=== PATIENT | female | born 1980 | race Native Hawaiian/Other Pacific Islander ===

== ENCOUNTER → 2022-07-01 | Outpatient (CLI) | payer MEDICAID ==
[2022-07-01 12:02] LABS: URINE CREATININE FOR RATIO 55 MG/DL (30-125); URINE PROTEIN FOR RATIO ONLY < 6 MG/DL (6-12)
== END ==
LOC: LABNPT 11:32
PROVIDERS: ATTEND Obstetrics & Gynecology
DX: O13.9 Gestational [pregnancy-induced] hypertension without significant proteinuria, unspecified trimester (principal); Z3A.00 Weeks of gestation of pregnancy not specified
CPT/HCPCS: 82570; 84156

== ENCOUNTER 2022-07-14 05:29 | Outpatient (CLI) | payer MEDICAID ==
[~2022-07-14] VITALS: Ht 162.6 cm; Wt 180.5 kg
== END 2022-07-14 10:19 | disposition home or self-care (01) ==
LOC: PREOP 05:29
PROVIDERS: ATTEND Obstetrics & Gynecology
DX: Z01.818 Encounter for other preprocedural examination (principal)

== ENCOUNTER 2022-07-21 06:03 | Inpatient (IN) | payer MEDICAID ==
[2022-07-21] VITALS (8 sets, daily range): BP systolic 111–150; BP diastolic 8–96
[~2022-07-21] VITALS: Ht 165.1 cm; Wt 186.8 kg
[2022-07-21] MEDS ORDERED: metroNIDAZOLE 500MG/100ML IVPB 100 ML IV ONE (06:15)
[2022-07-21] MEDS ORDERED: ceFAZolin INJECTION 2,000 MG in NS (IVPB) 50 ML IV ONE (06:15)
[2022-07-21] MEDS ORDERED: FAMOTIDINE 20MG/2ML IV (PEPCID) IV ONE (06:30)
[2022-07-21] MEDS ORDERED: METOCLOPRAMIDE INJ 10 MG/2 ML (REGLAN) IV ONE (06:30)
[2022-07-21] MEDS ORDERED: LACTATED RINGERS 1,000 ML IV PRN ×2 (06:30)
[2022-07-21] MEDS ORDERED: CITRIC ACID/SOB CIT (BICITRA) 30 ML UDC PO ONE (06:30)
[2022-07-21] MEDS ORDERED: OXYTOCIN PRE-MIX DRIP 1,000 ML IV ONE (06:56)
[2022-07-21] MEDS ORDERED: fentaNYL INJ 100 MCG/2 ML AMP ONE (06:56)
[2022-07-21] MEDS ORDERED: KETOROLAC 30 MG/ML VIAL ONE (08:20)
[2022-07-21] MEDS ORDERED: OXYTOCIN PRE-MIX DRIP 500 ML IV ONE (10:13)
[2022-07-21 15:33] LABS: BASOPHILS % (AUTO) 0 % (0-10); EOSINOPHILS % (AUTO) 0 % (0-10); HEMATOCRIT 35 % (35-52); HEMOGLOBIN 11.4 g/dL (11.5-16.0); LYMPHOCYTES # (AUTO) 1.4 10^3/uL (1.0-4.0); LYMPHOCYTES % (AUTO) 17 % (12-44); MEAN CORPUSCULAR HEMOGLOBIN 26 pg (25-34); MEAN CORPUSCULAR HGB CONC 33 g/dL (32-36); MEAN CORPUSCULAR VOLUME 80 fL (80-99); MEAN PLATELET VOLUME 10.5 fL (9.0-12.2); MONOCYTES # (AUTO) 0.4 10^3/uL (0.0-1.0); MONOCYTES % (AUTO) 5 % (0-12); NEUTROPHILS # (AUTO) 6.3 10^3/uL (1.8-7.8); NEUTROPHILS % (AUTO) 77 % (42-75); PLATELET COUNT 270 10^3/uL (130-400); WHITE BLOOD COUNT 8.3 10^3/uL (4.3-11.0)
[2022-07-21] MEDS ORDERED: ONDANSETRON 4 MG/2 ML (SDV) Z0FRAN IVP PRN (19:15)
[2022-07-21] MEDS ORDERED: TETANUS,DIPTH,PERTUSS P/F (BOOSTRIX) 0.5 ML VIAL IM SCH (19:15)
[2022-07-21] MEDS ORDERED: MEASLES,MUMPS,RUBELLA 1 EA INJ SC SCH (19:15)
[2022-07-21] MEDS ORDERED: OXYTOCIN PRE-MIX DRIP 500 ML IV SCH (19:15)
[2022-07-21] MEDS ORDERED: HYDROcodone/APAP 5 MG/325 MG (LORTAB) TAB PO PRN (19:30)
[2022-07-21] MEDS: CATHETER FLUSH 10 ML SYR IV SCH (20:40)
[2022-07-21] MEDS: DOCUSATE SODIUM 100 MG (COLACE) CAP PO SCH (20:40)
[2022-07-21] MEDS: KETOROLAC 30 MG/ML VIAL IV SCH (20:40)
[2022-07-21] MEDS: ENOXAPARIN 60 MG/0.6 ML (LOVENOX) SYR SC SCH (20:44)
--- NOTE | 2022-07-21 21:25 | OPERATIVE REPORT ---
PREOPERATIVE DIAGNOSES:. 1. A 41-year-old female with previous section. 2. 39 weeks' gestation. 3. Morbid obesity. POSTOPERATIVE DIAGNOSES: 1. A 41-year-old female with previous section. 2. 39 weeks' gestation. 3. Morbid obesity. PROCEDURE: Repeat low transverse section. SURGEON: Reynaldo Fernandes DO. SIGN CARPENTER: Dr. Dino Liao, who was necessary for manipulation and retraction throughout the procedure. ANESTHESIA: Spinal. ESTIMATED BLOOD LOSS: 700 mL. URINE OUTPUT: 75 mL clear at the end of the procedure. FLUIDS: 1000 mL lactated Ringer's solution. FINDINGS: A live male infant weighing 7 pounds 4 ounces, Apgars of 8 and 8. Grossly normal appearing uterus, bilateral fallopian tubes and ovaries. SPECIMEN SENT: Placenta. INDICATIONS FOR PROCEDURE: The patient is a 41-year-old female patient who had sought care with Dr Liao at the [facility]. Her was complicated by advanced maternal age and morbid obesity as well as previous section. I discussed with the patient her preoperative visit the risk of surgery including risk of bleeding, infection, damage to surrounding structures including but not limited to bowel, bladder, ureter, kidneys, possible need for reoperation, postoperative complications that may occur, recovery timeframe, risk from anesthesia and even . After everything was discussed with the patient in detail, she was agreeable to proceed. Consent was obtained. The patient was taken to the operating room. OPERATIVE REPORT IN DETAIL: Once in the operating room, spinal analgesia was administered and found to be adequate, was placed in supine position with leftward tilt, prepped and draped in normal sterile fashion. Her pannus was suspended using a towel clamp, applied Kerlix over her shoulders bilaterally. I then identified the previous Pfannenstiel skin incision. After anesthesia was tested and the patient was draped, I then proceeded to make an incision through the previously existing scar using knife and carried down underlying fascia using Bovie cautery. The fascial incision extended laterally using Bovie cautery. The superior aspect of fascial incision was then grasped with Salvador clamps, tented upward, and dissected off the underlying rectus muscles. The inferior aspect of the fascial incision was then grasped with Salvador clamps, tented up, and dissected off the underlying rectus muscles. The rectus muscles were dissected down the midline sharply, which exposed the peritoneum, which I entered bluntly and extended using blunt traction. Jose De Jesus ring retractor was placed in the peritoneal incision, which offers excellent lateral sidewall retraction. I identified the lower uterine segment, found to be thinned out. I make a low transverse incision to the vesicouterine peritoneum and bluntly dissected this off the lower uterine segment, creating a bladder flap. I then proceeded my myotomy until membranes were visualized, at which point I extended the uterine incision laterally and superiorly using bandage scissors. Amniotomy was then performed using an Allis clamp. Clear fluid was noted. The was found in the vertex presentation. The head was elevated up the incision where delivered through the incision, the nares and oropharynx were bulb suctioned. Anterior and posterior shoulders were delivered. The was brought to the operative field where cords were doubly clamped and cut and infant was handed off to waiting nurses in attendance and Dr. Liao who further attend to the infant. Cord blood was collected. Three-vessel cord with intact placenta was delivered spontaneously thereafter. IV Pitocin was initiated to facilitate uterine contraction. Uterine fundus confirmed by manual massage. The uterus was then exteriorized and cleared of all endometrial clots and debris. I then proceeded with closing the uterine incision using 0 Vicryl suture in a running locked fashion. Second layer of imbricating 0 Monocryl was placed. Excellent hemostasis was noted after doing this, I then placed the uterus back in the pelvis and copiously irrigated the pelvis using normal saline. Once again, there was no active bleeding noted from any of my dissection planes. I placed Interceed antiadhesive over my low transverse incision. I removed the Jose De Jesus ring retractor and then proceeded with closing the peritoneum and rectus muscles in one layer using 3-0 Vicryl suture in a running fashion. The fascia was reapproximated using 0 Vicryl suture in a running fashion. The subcutaneous tissues were reapproximated using 3-0 plain interrupted subcutaneous stitch and skin reapproximated using veena. Lap and sponge counts were correct at the end of the procedure, the counts correct as well. A sterile dressing with adhesive white tape. The patient tolerated the procedure well and sent to recovery area in stable condition. A 2 grams Ancef and 500 mg of Flagyl were given preoperatively for infection prophylaxis. Job ID: [id number] DocumentID: [id number] Dictated Date: 07/21/2022 14:07:07 Business Office Specialist Date: 07/21/2022 21:23:00 Dictated By: REYNALDO FERNANDES DO
[2022-07-22 00:18] VITALS: BP 128/74
[2022-07-22] MEDS: KETOROLAC 30 MG/ML VIAL IV SCH ×2 (02:25→08:00)
[2022-07-22 04:41] VITALS: BP 126/76
--- NOTE | 2022-07-22 05:54 | History & Physical-OB ---
YARI ZAPATA 07/22/22 0554: OB - Chief Complaint & HPI Date/Time Date of Admission: Date of Admission: July 21, 2022 at 06:03 Date seen by a Provider: July 21, 2022 Time Seen by a Provider: 07:00 Chief Complaint/History OB-Reason for Admission/Chief: Section Hx : 3 Hx Para: 2 Hx Last Menstrual Period: 10/22/2021 Expected Date of Delivery: July 28, 2022 Gestational Age in Weeks: 39 Gestational Age in Days: 0 Indication for : desires repeat Admission Nurse Assessment Rev: Yes Allergies and Home Medications Allergies Coded Allergies: No Known Drug Allergies (Unverified , 07/14/22) Patient Home Medication List Home Medication List Reviewed: Yes No Active Prescriptions or Reported Meds OB - History Hx of Present Care: Yes Ultrasounds: Normal mid trimester US Obstetrical Complications: None Medical Complications: None Information Induced Hypertension: No Maternal Gestational Diabetes: No Hemorrhage: No Obstetrical History Hx : 3 Hx Para: 2 Hx # Term Pregnancies: 2 Number of Living Children: 2 Hx Termination: No Hx Multiple Gestation: No Hx Ectopic : No Hx Stillbirth: No Hx Complication: No Hx Induced Hypertens: No Hx Maternal Gestational Diabet: No Hx Hemorrhage: No Delivery History Hx Dystocia: No Hx Forceps Assisted Delivery: No Hx Vacuum Extraction Assisted: No Hx Placenta Abnormality: No Hx Distress: No Hx Large For Gestational Age I: No Hx Small for Gestational Age I: No Hx Section: Yes Hx Vaginal Delivery Post C-Sec: No Hx Blood Disorders: No Adverse Rxn to Tranfusion: No Patient Past Medical History Nothing Social History/Family History Alcohol Use: Denies Use Recreational Drug Use: Yes (History of positive amphetamine and methamphetamine test) Smoking Cessation: Never smoker 2nd Hand Smoke Exposure: No Immunizations Tetanus Booster (TDap): Less than 5yrs Rubella: immune RPR/VDRL: Negative GBS Status: Positive HBsAG: Negative OB - Admission Exam Physical Exam Vitals: Vital Signs 07/22/22 04:41 Temp 36.4 Pulse 95 Resp 20 B/P (MAP) 126/76 (93) Pulse Ox 98 O2 Delivery Room Air Heart: Rhythm Normal Lungs: Clear Abdomen: Soft Reflexes: Normal Membranes: Intact Contractions on Admission: None Labs Laboratory Tests Test 07/21/22 06:15 07/22/22 05:04 Range/Units White Blood Count 8.3 4.3-11.0 10^3/uL Red Blood Count 4.34 3.80-5.11 10^6/uL Hemoglobin 11.4 L 11.5-16.0 g/dL Hematocrit 35 35-52 % Mean Corpuscular Volume 80 80-99 fL Mean Corpuscular Hemoglobin 26 25-34 pg Mean Corpuscular Hemoglobin Concent 33 32-36 g/dL Red Cell Distribution Width 14.7 H 10.0-14.5 % Platelet Count 270 130-400 10^3/uL Mean Platelet Volume 10.5 9.0-12.2 fL Immature Granulocyte % (Auto) 1 % Neutrophils (%) (Auto) 77 H 42-75 % Lymphocytes (%) (Auto) 17 12-44 % Monocytes (%) (Auto) 5 0-12 % Eosinophils (%) (Auto) 0 0-10 % Basophils (%) (Auto) 0 0-10 % Neutrophils # (Auto) 6.3 1.8-7.8 10^3/uL Lymphocytes # (Auto) 1.4 1.0-4.0 10^3/uL Monocytes # (Auto) 0.4 0.0-1.0 10^3/uL Eosinophils # (Auto) 0.0 0.0-0.3 10^3/uL Basophils # (Auto) 0.0 0.0-0.1 10^3/uL Immature Granulocyte # (Auto) 0.1 0.0-0.1 10^3/uL OB - Assessment/Plan/Diagnosis Assessment Assessment: section Admission Dx Repeat section Admission Status: Inpatient Order (span 2 midnights) Reason for Inpatient Admission: Repeat section Plan Plan: Section DOMREYNALDO Thong DO 07/22/22 0710: Allergies and Home Medications Allergies Coded Allergies: No Known Drug Allergies (Unverified , 07/14/22) Patient Home Medication List No Active Prescriptions or Reported Meds OB - Assessment/Plan/Diagnosis Plan Other Plan Verification and Attestation of Medical Student E/M Service A medical student performed and documented this service in my presence. I reviewed and verified all information documented by the medical student and made modifications to such information, when appropriate. I personally performed the physical exam and medical decision making. Reynaldo Fernandes, July 22, 2022,07:10 YARI ZAPATA July 22, 2022 05:54 REYNALDO FERNANDES DO July 22, 2022 07:10
[2022-07-22] MEDS: CATHETER FLUSH 10 ML SYR IV SCH ×2 (05:57→14:00)
--- NOTE | 2022-07-22 06:22 | Postpartum Progress Note ---
SHIRLEY ZAPATALE 07/22/22 0622: Note Note Day # 1 Subjective: Patient is without complaints. Ambulating, voiding. Tolerating a regular diet without nausea or vomiting. Normal lochia. Pain is well controlled with oral pain medications. Objective: Physical Exam: General - Alert and oriented, no apparent distress Cardio - RRR, no murmur Pulm - CTAB Abdomen - Soft, appropriately tender to palpation, non-distended, fundus firm at umbilicus Extremities - no edema, negative Juan's bilaterally Incision intact. Bloody drainage apparent on examination. Assessment: Post- day # 1, status post section. Recovering well, hemodynamically stable Acute on chronic blood loss anemia Plan: Routine care. Encourage breast feeding. Encourage ambulation. Ferrous sulfate supplementation. Plan for discharge 07/23/2022 Vitals - Labs Vital Signs - I&O Vital Signs Date Time Temp Pulse Resp B/P (MAP) Pulse Ox O2 Delivery O2 Flow Rate FiO2 07/22/22 04:41 36.4 95 20 126/76 (93) 98 Room Air 07/22/22 00:18 36.2 98 18 128/74 (92) 99 Room Air 07/21/22 20:59 Room Air 07/21/22 20:15 37.2 101 20 141/82 (101) 96 Room Air 07/21/22 09:25 Room Air 07/21/22 09:20 36.4 16 144/84 (104) 99 Room Air 07/21/22 09:10 16 144/96 (112) 99 Room Air 07/21/22 09:05 Room Air 07/21/22 09:00 17 134/8 (50) 99 Room Air 07/21/22 08:50 Room Air 07/21/22 08:50 16 134/76 (95) 99 Room Air 07/21/22 08:40 19 123/69 (87) 99 Room Air 07/21/22 08:34 Room Air 07/21/22 08:34 36.3 16 111/75 (87) 97 Room Air 07/21/22 06:35 36.8 93 18 96 Room Air I & O 07/22/22 07:00 Intake Total 1550 ml Output Total 480 ml Balance 1070 ml Labs Laboratory Tests 07/22/22 05:04: REYNALDO FERNANDES DO 07/22/22 0712: Note Note Verification and Attestation of Medical Student E/M Service A medical student performed and documented this service in my presence. I reviewed and verified all information documented by the medical student and made modifications to such information, when appropriate. I personally performed the physical exam and medical decision making. Reynaldo Fernandes, July 22, 2022,07:12 YARI ZAPATA July 22, 2022 06:22 REYNALDO FERNANDES DO July 22, 2022 07:12
[2022-07-22 06:30] LABS: BASOPHILS % (AUTO) 0 % (0-10); EOSINOPHILS % (AUTO) 0 % (0-10); HEMATOCRIT 30 % (35-52); HEMOGLOBIN 9.8 g/dL (11.5-16.0); LYMPHOCYTES # (AUTO) 1.2 10^3/uL (1.0-4.0); LYMPHOCYTES % (AUTO) 13 % (12-44); MEAN CORPUSCULAR HEMOGLOBIN 26 pg (25-34); MEAN CORPUSCULAR HGB CONC 33 g/dL (32-36); MEAN CORPUSCULAR VOLUME 81 fL (80-99); MEAN PLATELET VOLUME 11.4 fL (9.0-12.2); MONOCYTES # (AUTO) 0.5 10^3/uL (0.0-1.0); MONOCYTES % (AUTO) 5 % (0-12); NEUTROPHILS # (AUTO) 7.4 10^3/uL (1.8-7.8); NEUTROPHILS % (AUTO) 81 % (42-75); PLATELET COUNT 210 10^3/uL (130-400); WHITE BLOOD COUNT 9.2 10^3/uL (4.3-11.0)
[2022-07-22] MEDS: ENOXAPARIN 60 MG/0.6 ML (LOVENOX) SYR SC SCH ×2 (07:30→20:00)
[2022-07-22] MEDS ORDERED: RHO(D) IMMUNE GLOBULIN 300 MCG/2 ML SYRINGE IM/IV ONE (07:30)
[2022-07-22 08:00] VITALS: BP 124/76
[2022-07-22] MEDS: DOCUSATE SODIUM 100 MG (COLACE) CAP PO SCH ×2 (09:00→21:50)
[2022-07-22] MEDS ORDERED: RHO(D) IMMUNE GLOBULIN 300 MCG/2 ML SYRINGE ONE (09:38)
--- NOTE | 2022-07-22 11:41 | Anesthesia-Regional Post-Op ---
Regional Patient Condition Mental Status: Alert, Oriented x3 Circulation: Same as Pre-Op Headache: Absent Sensation: Full Recovery Motor Block: Absent Post Op Complications Complications None Follow Up Care/Instructions Patient Instructions None needed. Anesthesia/Patient Condition Patient is doing well, no complaints, stable vital signs, no apparent adverse anesthesia problems. No complications reported per nursing. MARYAN NEWSOME CRNA July 22, 2022 11:41
[2022-07-22 12:00] VITALS: BP 145/82
--- NOTE | 2022-07-22 12:46 | Wound Care Assessment ---
Wound Care Assessment Date Seen by Provider: July 22, 2022 Time Seen by Provider: 09:10 Chief Complaint Post-surgical wound HPI Irais Leiva is a 41 year old female who delivered via repeat on 07/21. incision was closed via omega, but the patient has had persi stent bleeding since the procedure, prompting wound care consult. The patient complains only of abdominal cramping and does not have any other concerns at this time.Irais is not a smoker nor is she diabetic but she remains very high risk for surgical dehiscence due to her morbid obesity. Her wound remains well approximated. I do think vacuum assisted wound closure would be very reasonable with Prevena system wound vac if the hospital is able to procure. Hopefully in 1 weeks time with closure surgical follow up, minimal movement and no heavy lifting, this will be enough to prevent dehiscence. Obesity Smoking Status: Never a Smoker Recreational Drug Use: Yes (History of positive amphetamine and methamphetamine test) Alcohol Use: Denies Use Review of Systems General: No Chills Gastrointestinal: Abdominal Pain Neurological: No: Numbness Exam Vital Signs Date Time Temp Pulse Resp B/P (MAP) Pulse Ox O2 Delivery O2 Flow Rate FiO2 07/22/22 08:00 36.4 94 18 124/76 (92) 97 Room Air Capillary Refill : Less Than 3 Seconds General Appearance: mild distress, obese HEENT: PERRL/EOMI, other (edentulous) Skin: other (transverse stapled incision to the midline lower abdomen) Skin Problem Location: torso (18 x 0.3 cm transverse incision along lower abdomen, with active bleeding, moderate amount of bright red blood.) Surgical Incision: Well approximated with omega and intact. 0.1x18x0.3 cm. There is no epithelialization, drainage is large and serosanguous. Omega remain in place. Results Laboratory Tests 07/22/22 05:04: White Blood Count 9.2, Red Blood Count 3.72L, Hemoglobin 9.8L, Hematocrit 30L, Mean Corpuscular Volume 81, Mean Corpuscular Hemoglobin 26, Mean Corpuscular Hemoglobin Concent 33, Red Cell Distribution Width 15.1H, Platelet Count 210, Mean Platelet Volume 11.4, Immature Granulocyte % (Auto) 1, Neutrophils (%) (Auto) 81H, Lymphocytes (%) (Auto) 13, Monocytes (%) (Auto) 5, Eosinophils (%) (Auto) 0, Basophils (%) (Auto) 0, Neutrophils # (Auto) 7.4, Lymphocytes # (Auto) 1.2, Monocytes # (Auto) 0.5, Eosinophils # (Auto) 0.0, Basophils # (Auto) 0.0, Immature Granulocyte # (Auto) 0.1 Assessment/Plan/Dx Assessment: 1. POD 1 s/p RLTCS 2. High risk for surgical dehiscence 3. Obesity Plan: 1. Abdominal pad and abdominal binder placement until Prevena is available 2. Initiate Prevena incision management system Supervisory-Addendum Brief Verification & Attestation Participated in pt care: history, MDM, physical Personally performed: exam, history, MDM, supervision of care Care discussed with: Medical Student Procedures: n/a Results interpretation: Verified all documentation MD MATHEW Real KELVIN July 22, 2022 12:46 ALEJA RUSSO MD July 22, 2022 15:51
[2022-07-22] MEDS: IBUPROFEN 600 MG (MOTRIN) TAB PO SCH ×2 (14:56→21:49)
[2022-07-22 16:00] VITALS: BP 149/81
[2022-07-22 20:00] VITALS: BP 145/83
[2022-07-23 00:05] VITALS: BP 162/84
[2022-07-23 01:05] VITALS: BP 155/87
[2022-07-23] MEDS: IBUPROFEN 600 MG (MOTRIN) TAB PO SCH ×2 (03:10→08:46)
[2022-07-23 04:10] VITALS: BP 138/81
--- NOTE | 2022-07-23 06:04 | Postpartum Progress Note ---
YARI ZAPATA 07/23/22 0604: Note Note Day # 2 Subjective: Patient is without complaints. Ambulating, voiding. Tolerating a regular diet without nausea or vomiting. Normal lochia. Pain is well controlled with oral pain medications. Objective: Physical Exam: General - Alert and oriented, no apparent distress Cardio - RRR, no murmurs Pulm - CTAB Abdomen - Soft, appropriately tender to palpation, non-distended, fundus firm at umbilicus Extremities - no edema, negative Juan's bilaterally Sub-Q seroma. Incision is intact. Assessment: Post- day # 2, status post section. Recovering well, hemodynamically stable Acute on chronic anemia Prevena placement on section incision Hypertensive Plan: Routine care. Encourage breast feeding. Encourage ambulation. Ferrous sulfate supplementation. Plan for discharge 07/24/2022 Vitals - Labs Vital Signs - I&O Vital Signs Date Time Temp Pulse Resp B/P (MAP) Pulse Ox O2 Delivery O2 Flow Rate FiO2 07/23/22 04:10 36.4 85 20 138/81 (100) 98 Room Air 07/23/22 01:05 88 20 155/87 (109) 07/23/22 00:05 36.4 94 20 162/84 (110) 99 Room Air 07/22/22 20:00 37.4 91 18 145/83 (103) 99 Room Air 07/22/22 16:00 36.2 91 16 149/81 (103) 99 07/22/22 12:00 36.7 94 16 145/82 (103) 99 07/22/22 08:00 36.4 94 18 124/76 (92) 97 Room Air LENKA FERNANDES DO 07/23/22 0725: Note Note Verification and Attestation of Medical Student E/M Service A medical student performed and documented this service in my presence. I reviewed and verified all information documented by the medical student and made modifications to such information, when appropriate. I personally performed the physical exam and medical decision making. Lenka Fernandes, July 23, 2022,07:25 YARI ZAPATA July 23, 2022 06:04 LENKA FERNANDES DO July 23, 2022 07:25
[2022-07-23 08:46] VITALS: BP 141/71
[2022-07-23] MEDS: DOCUSATE SODIUM 100 MG (COLACE) CAP PO SCH (08:46)
[2022-07-23] MEDS: ENOXAPARIN 60 MG/0.6 ML (LOVENOX) SYR SC SCH (08:47)
--- NOTE | 2022-07-23 10:17 | Discharge Inst-Women's Service ---
Discharge Inst-Women's Serv Depart Medication/Instructions New, Converted or Re-Newed RX: Transmitted to Pharmacy Final Diagnosis POD 2 RLTCS Problems Reviewed?: Yes Consults/Follow Up Additional Follow Up: Yes Orders/Referrals Dr. Vieira in 7-[address] Liao in 6 weeks Activity Activity: Activity as Tolerated Driving Instructions: No Driving for 1 Week NO SMOKING: NO SMOKING Nothing Inside Vagina: No Douching, No [place], No Tampons Diet Discharge Diet: No Restrictions Symptoms to Report to : Bleeding Excessive, Pain Increased, Fever Over 101 Degrees F, Vaginal Bleeding Increase, Questions/Concerns For Any Problems or Questions: Contact Your Physician Skin/Wound Care Wound Care Comment: Follow wound vac/wound care instructions. Will plan to remove in one week. Stitches/Brookings/Dermabond: Care of Omega Bathing Instructions: LENKA Casanova DO July 23, 2022 10:17
[2022-07-23] MEDS ORDERED: ACHD5005 PO (10:18)
[2022-07-23] MEDS ORDERED: IBUP-844 PO (10:18)
[2022-07-23] MEDS ORDERED: DOCU100C37 PO (10:18)
[2022-07-23 14:25] VITALS: BP 141/71
== END 2022-07-23 14:25 | disposition home or self-care (01) | DRG 787 ==
LOC: LDRP 06:03
PROVIDERS: ADMIT Obstetrics & Gynecology; ATTEND Obstetrics & Gynecology
PROC: 10D00Z1 Extraction of Products of Conception, Low, Open Approach (ICD-10-PCS; principal; 2022-07-22)
DX: O34.211 Maternal care for low transverse scar from previous cesarean delivery (principal); D62 Acute posthemorrhagic anemia; Z3A.39 39 weeks gestation of pregnancy; Z37.0 Single live birth; O99.214 Obesity complicating childbirth; E66.01 Morbid (severe) obesity due to excess calories; O90.81 Anemia of the puerperium; O16.5 Unspecified maternal hypertension, complicating the puerperium
CPT/HCPCS: 36415; 83033; 85025; 86850; 86900; 86901; 94664

== ENCOUNTER 2022-07-26 12:13 | Observation (INO) | payer MEDICAID ==
[~2022-07-26] VITALS: Ht 165.1 cm; Wt 186.0 kg
[2022-07-26] VITALS (7 sets, daily range): BP systolic 123–165; BP diastolic 68–97
[~2022-07-26 12:13] MED LIST: ACHD5005 PO; DOCU100C37 PO; IBUP-844 PO
[2022-07-26 12:43] LABS: BASOPHILS % (AUTO) 0 % (0-10); EOSINOPHILS # (AUTO) 0.2 10^3/uL (0.0-0.3); EOSINOPHILS % (AUTO) 3 % (0-10); HEMATOCRIT 31 % (35-52); HEMOGLOBIN 10.2 g/dL (11.5-16.0); LYMPHOCYTES # (AUTO) 1.3 10^3/uL (1.0-4.0); LYMPHOCYTES % (AUTO) 18 % (12-44); MEAN CORPUSCULAR HEMOGLOBIN 26 pg (25-34); MEAN CORPUSCULAR HGB CONC 33 g/dL (32-36); MEAN CORPUSCULAR VOLUME 81 fL (80-99); MEAN PLATELET VOLUME 9.7 fL (9.0-12.2); MONOCYTES # (AUTO) 0.4 10^3/uL (0.0-1.0); MONOCYTES % (AUTO) 6 % (0-12); NEUTROPHILS # (AUTO) 5.1 10^3/uL (1.8-7.8); NEUTROPHILS % (AUTO) 71 % (42-75); PLATELET COUNT 305 10^3/uL (130-400); WHITE BLOOD COUNT 7.2 10^3/uL (4.3-11.0)
[2022-07-26 12:55] LABS: ALBUMIN 2.8 GM/DL (3.2-4.5); POTASSIUM 3.8 MMOL/L (3.6-5.0)
[2022-07-26 12:56] LABS: CALCIUM 8.4 MG/DL (8.5-10.1)
[2022-07-26 12:57] LABS: TOTAL PROTEIN 6.6 GM/DL (6.4-8.2)
--- NOTE | 2022-07-26 12:58 | ED GU-Female ---
General Chief Complaint: (<6 weeks) Stated Complaint: WOUND History of Present Illness Date Seen by Provider: July 26, 2022 Time Seen by Provider: 12:15 Initial Comments 41 year old female had on 07/21/22 and discharged to home on 07/23/22 presents with wound vac that filled with serosanugionous fluid today. She reports being told at d/c to return to ED if wound vac filled. She is taking Hydrocodone 5mg/APAP for post surgical pain, last took at midnight. Occasional headaches, reports minimal at this time, no vision changes. She denies preclampsia, gestational diabetes, or other complications during her . She is very anxious and concerned about her wound. Wound vac was placed by wound care due to continued bleeding through veena and morbid obesity making wound dehiscence a high risk. She reports swelling in her ankles and feet, compatible with symptoms she experienced in her last trimester. She denies taking any medications, illicit drugs, tobacco products, or alcohol. Per H&P on admission 07/21/22 noted to have history of positive amphetamine and methamphetamine screens. No drug screen through her admission for and no previous CMP or BMP. She is not . She is G3, P3, A0. She denies fevers, SOA, Chest Pain, Abdominal Pain or other concerns. She is not drinking water, has multiple cups of tea daily and some ice chips. She has not been elevating her legs. No medicine for the headaches. Minimal vaginal discharge. Timing/Duration: getting worse Severity/Quality: mild Location: suprapubic Radiation: none Associated Symptoms: abdominal pain (minimal at surgical site. Binder and wound vac in place); No dysuria, No fever/chills, No loss of bladder control, No lower back pain, No nausea/vomiting, No polyuria; swelling (LEs); No syncope, No urinary frequency (COSME DRAKE) Allergies and Home Medications Allergies Coded Allergies: No Known Drug Allergies (Unverified , 07/14/22) Patient Home Medication List Home Medication List Reviewed: Yes (COSME DRAKE) Docusate Sodium (Docusate Sodium) 100 Mg Capsule, 100 MG PO BID PRN for CONSTIPATION-1ST LINE Prescribed by: LENKA FERNANDES on 07/23/22 1018 Hydrocodone/Acetaminophen (Hydrocodone-Acetamin 5-325 mg) 5 Mg-325 Mg Tablet, 2 EA PO Q4H PRN for PAIN-MODERATE (5-7) Prescribed by: LENKA FERNANDES on 07/23/22 1018 Ibuprofen (Ibu) 600 Mg Tablet, 600 MG PO Q6H Prescribed by: LENKA FERNANDES on 07/23/22 1018 Review of Systems Review of Systems Constitutional: no symptoms reported, see HPI EENTM: see HPI, no symptoms reported, dental problems (multiple missing teeth and cavities present. ); No blurred vision, No double vision, No eye pain, No vision loss Respiratory: no symptoms reported, see HPI; No dyspnea on exertion, No hemopt ysis, No phlegm, No short of breath Cardiovascular: no symptoms reported, see HPI; No chest pain Gastrointestinal: see HPI, other (wound vac) : No Musculoskeletal: no symptoms reported, see HPI (COSME DRAKE) All Other Systemes Reviewed Negative Unless Noted: Yes (COSME DRAKE) Past Nrxybyg-Hxvlql-Ghitau Hx Patient Social History Tobacco Use?: No Use of E-Cig and/or Vaping dev: No Substance use?: No Alcohol Use?: No Pt feels they are or have been: No (COSME DRAKE) Immunizations Up To Date Tetanus Booster (TDap): Less than 5yrs Influenza Vaccine Up-to-Date: No; Not Current First/Initial COVID19 Vaccinat: n/a (COSME DRAKE) Seasonal Allergies Seasonal Allergies: No (COSME DRAKE) Past Medical History Surgery/Hospitalization HX: C SECT X 3 Surgeries: Yes Section Respiratory: Yes ( CHILD) Asthma Currently Using CPAP: No Currently Using BIPAP: No Cardiac: Yes (PIH) Neurological: No Hx : 3 Hx Para: 3 Hx Total # of Abortions (Sp): 0 Genitourinary: No Gastrointestinal: Yes Gastroesophageal Reflux Musculoskeletal: No Endocrine: No HEENT: No Cancer: No Psychosocial: No Integumentary: No Blood Disorders: No Adverse Reaction/Blood Tranf: No (COSME DRAKE) Family Medical History Reviewed Nursing Family Hx (COSME DRAKE) Physical Exam Vital Signs Vital Signs - First Documented 07/26/22 12:18 Temp 36.6 Pulse 110 Resp 18 B/P (MAP) 194/135 (154) Pulse Ox 99 O2 Delivery Room Air Capillary Refill : Height, Weight, BMI Height: '" Weight: lbs. oz. kg; 68.53 BMI Method: General Appearance: mild distress (anxious and concerned about her health/wound vac), obese (morbid) HEENT: PERRL/EOMI, normal ENT inspection, TMs normal, pharynx normal, other (oral mucosa pink and moist) Neck: non-tender, full range of motion, supple, normal inspection Cardiovascular: normal peripheral pulses, regular rate, rhythm Respiratory: chest non-tender, lungs clear, normal breath sounds, no respiratory distress Gastrointestinal: normal bowel sounds, non tender, soft, other (lower abdominal incision with wound vac in place, no bleeding noted or other d/c. No warmth, erythema or dehiscence noted. Wound vac dressing in place and secured to skin. Wound vac cartridge beeping and appears full. ) Extremities: normal range of motion, non-tender, normal inspection, no calf tenderness, normal capillary refill, pedal edema (2+, non pitting. Patient reports similar swelling pre . ) Neurologic/Psychiatric: no motor/sensory deficits, alert, normal mood/affect, oriented x 3 Skin: normal color, warm/dry (COSME DRAKE) Focused Exam Sepsis Stage: Ruled Out (COSME DRAKE) Time of Focused Exam: 15:30 Respiratory: Chest Non Tender, Lungs Clear, Normal Breath Sounds Cardiovascular: Regular Rate, Rhythm, No Murmur, Normal Peripheral Pulses Capillary Refill: Less Than 3 Seconds Skin: normal color, warm/dry (COSME DRAKE) Progress/Results/Core Measures Suspected Sepsis SIRS Temperature: Pulse: Respiratory Rate: Laboratory Tests 07/26/22 12:35: White Blood Count 7.2 Blood Pressure / Mean: Laboratory Tests 07/26/22 12:35: Creatinine 0.78, Platelet Count 305, Total Bilirubin 0.3 07/26/22 13:25: INR Comment 1.0 (COSME DRAKE) Results/Orders Lab Results Laboratory Tests Test 07/26/22 12:35 07/26/22 13:25 07/26/22 14:14 Range/Units White Blood Count 7.2 4.3-11.0 10^3/uL Red Blood Count 3.86 3.80-5.11 10^6/uL Hemoglobin 10.2 L 11.5-16.0 g/dL Hematocrit 31 L 35-52 % Mean Corpuscular Volume 81 80-99 fL Mean Corpuscular Hemoglobin 26 25-34 pg Mean Corpuscular Hemoglobin Concent 33 32-36 g/dL Red Cell Distribution Width 14.9 H 10.0-14.5 % Platelet Count 305 130-400 10^3/uL Mean Platelet Volume 9.7 9.0-12.2 fL Immature Granulocyte % (Auto) 1 % Neutrophils (%) (Auto) 71 42-75 % Lymphocytes (%) (Auto) 18 12-44 % Monocytes (%) (Auto) 6 0-12 % Eosinophils (%) (Auto) 3 0-10 % Basophils (%) (Auto) 0 0-10 % Neutrophils # (Auto) 5.1 1.8-7.8 10^3/uL Lymphocytes # (Auto) 1.3 1.0-4.0 10^3/uL Monocytes # (Auto) 0.4 0.0-1.0 10^3/uL Eosinophils # (Auto) 0.2 0.0-0.3 10^3/uL Basophils # (Auto) 0.0 0.0-0.1 10^3/uL Immature Granulocyte # (Auto) 0.1 0.0-0.1 10^3/uL Sodium Level 140 135-145 MMOL/L Potassium Level 3.8 3.6-5.0 MMOL/L Chloride Level 109 H 98-107 MMOL/L Carbon Dioxide Level 16 L 21-32 MMOL/L Anion Gap 15 H 5-14 MMOL/L Blood Urea Nitrogen 11 7-18 MG/DL Creatinine 0.78 0.60-1.30 MG/DL Estimat Glomerular Filtration Rate 99 BUN/Creatinine Ratio 14 Glucose Level 101 70-105 MG/DL Calcium Level 8.4 L 8.5-10.1 MG/DL Corrected Calcium 9.4 8.5-10.1 MG/DL Magnesium Level 1.9 1.6-2.4 MG/DL Total Bilirubin 0.3 0.1-1.0 MG/DL Aspartate Amino Transf (AST/SGOT) 17 5-34 U/L Alanine Aminotransferase (ALT/SGPT) 28 0-55 U/L Alkaline Phosphatase 158 H 40-136 U/L C-Reactive Protein High Sensitivity 6.51 H 0.00-0.50 MG/DL B-Type Natriuretic Peptide 83.1 <100.0 PG/ML Total Protein 6.6 6.4-8.2 GM/DL Albumin 2.8 L 3.2-4.5 GM/DL Prothrombin Time 13.1 12.2-14.7 SEC INR Comment 1.0 0.8-1.4 Activated Partial Thromboplast Time 30 24-35 SEC Urine Color ORANGE Urine Clarity SL CLOUDY Urine pH 6.5 5-9 Urine Specific [place] 1.010 L 1.016-1.022 Urine Protein 2+ H NEGATIVE Urine Glucose (UA) NEGATIVE NEGATIVE Urine Ketones NEGATIVE NEGATIVE Urine Nitrite NEGATIVE NEGATIVE Urine Bilirubin NEGATIVE NEGATIVE Urine Urobilinogen 1.0 < = 1.0 MG/DL Urine Leukocyte Esterase 2+ H NEGATIVE Urine RBC (Auto) 3+ H NEGATIVE Urine RBC >100 H /HPF Urine WBC 5-10 H /HPF Urine Squamous Epithelial Cells 2-5 /HPF Urine Crystals NONE /LPF Urine Bacteria FEW H /HPF Urine Casts NONE /LPF Urine Mucus NEGATIVE /LPF Urine Culture Indicated YES Urine Opiates Screen POSITIVE H NEGATIVE Urine Oxycodone Screen NEGATIVE NEGATIVE Urine Methadone Screen NEGATIVE NEGATIVE Urine Propoxyphene Screen NEGATIVE NEGATIVE Urine Barbiturates Screen NEGATIVE NEGATIVE Ur Tricyclic Antidepressants Screen NEGATIVE NEGATIVE Urine Phencyclidine Screen NEGATIVE NEGATIVE Urine Amphetamines Screen POSITIVE H NEGATIVE Urine Methamphetamines Screen POSITIVE H NEGATIVE Urine Benzodiazepines Screen NEGATIVE NEGATIVE Urine Cocaine Screen NEGATIVE NEGATIVE Urine Cannabinoids Screen NEGATIVE NEGATIVE My Orders Orders - NOELLE,COSME 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 [employer] [place] (07/26/22 12:35) Cbc With Automated Diff (07/26/22 12:35) Comprehensive Metabolic Panel (07/26/22 12:35) Hs C Reactive Protein (07/26/22 12:35) Magnesium (07/26/22 12:35) Protime With Inr (07/26/22 12:35) Partial Thromboplastin Time (07/26/22 12:35) Ua Culture If Indicated (07/26/22 12:35) Metoprolol Tartrate Injection (Lopressor (07/26/22 13:06) Drug Screen Stat (Urine) (07/26/22 13:43) Urine Culture (07/26/22 14:14) Furosemide Injection (Lasix Injection) (07/26/22 15:51) Hydralazine Injection (Apresoline Inject (07/26/22 15:53) Chest 1 View, Ap/Pa Only (07/26/22 15:55) Vital Signs/I&O 07/26/22 12:18 Temp 36.6 Pulse 110 Resp 18 B/P (MAP) 194/135 (154) Pulse Ox 99 O2 Delivery Room Air Capillary Refill : (COSME DRAKE) Progress Note : Time: 12:15 Progress Note patient assessed, concerned with elevated b/p. Will check labs. Leather Repairer notified and wound care nurse will be contacted. Reviewed admission for c- section. B/P was normotensive throughout admission and at time of discharge. Patient denies any history of taking b/p medication. She is no longer taking vitamins. 1300 B/P continues to be 150-170/90-110. HR 80-90s. Will give Metoprolol 10 mg IV. 1320 wound care nurse here, cartridge with 45 mL of serosanguineous drainage. The patient does report that she had no drainage but she did more aggressive activity yesterday including carrying in all of her groceries. After that is when she began noticing increased drainage to the wound VAC. She was discouraged from doing any aggressive activity and no carrying of anything heavier than the baby. Wound care nurse adjusted dressing to assure is is secure for proper function. Will monitor to assure no increase in drainage. 1330 B/P with slight decrease. HR 70s. UA not obtained. Remaining labs WNL. 1350 no drainage noted to wound vac cartridge. Dressing remains intact. 1415 UA obtained, awaiting results. B/P improved slightly after walking to bathroom. Drinking water, no complaints. 1445 UA 2+ protein. UDS positive for methamphetamine and amphetamine. Patient adamantly denies using meth for 5 months. Her mother is in the exam room and concerned because she left her residence yesterday and went to store and home. Patient reports having probation appt on 07/29/22. No further drainage to wound vac cartridge. [address] Kay, concern over continued hypertension, proteinuria, +UDS, and recent . Discussed previous BPs during admission for . Dr. Kay agreeable that patient needs admission and continued medication for her blood pressure. She will come see the patient while in ED. Recommended giving Lasix 40 mg IV and hydralazine 5 mg IV. Patient tearful, but agreeable to admit. Understands risks of leaving AMA. 1600 Dr. Kay in ED to see patient. She will put admission orders in. (COSME DRAKE) Diagnostic Imaging Diagonstic Imaging: Xray Plain Films/CT/US/NM/MRI: chest Comments NAME: AD[facility]TIZ [facility] REC#: [id number] PT STATUS: DEP ER : [id number] PHYSICIAN: COSME DRAKE ADMIT DATE: 07/26/22/ER Draft Date of Exam:07/26/22 CHEST 1 VIEW, AP/PA ONLY INDICATION: hypertension. COMPARISON: None available. TECHNIQUE: Two radiographs of the chest dated July 26, 2022. FINDINGS: The cardiac silhouette is enlarged. Central pulmonary vascular congestion is present. The lungs are clear of focal pulmonary opacity when accounting for overlying soft tissues. No significant pleural effusion. No pneumothorax. No acute osseous abnormality. IMPRESSION: Cardiomegaly with central pulmonary vascular congestion, likely accentuated by patient body habitus and technique. No large-volume pleural effusion. Dictated on workstation # [id number] Dict: 07/26/22 1644 Trans: 07/26/[address] [facility] [id number] Interpreted by: WILIAN MERLOS MD Electronically signed by: Reviewed: Reviewed by Me (COSME DRAKE) Departure Impression Primary Impression: hypertension Additional Impressions: Encounter for management of wound VAC section wound complication Methamphetamine abuse Disposition: ADMITTED INPATIENT Condition: Stable Admissions Decision to Admit/Date: July 26, 2022 Time/Decision to Admit Time: 14:30 (COSME DRAKE) Departure-Patient Inst. Referrals: LENKA WHALEN (PCP/Family) Primary Care Physician ATTENDING PHYSICIAN NOTE: I was physically present as attending physician in the emergency department during the care of this patient, but I was not directly involved in the decision making or delivery of care for this patient. (VERA ROCHA MD) Copy Copies To 1: TAYLOR DUNN MD, AMY ARNP July 26, 2022 12:58 VERA ROCHA MD July 26, 2022 21:19
[2022-07-26 12:59] LABS: BILIRUBIN,TOTAL 0.3 MG/DL (0.1-1.0)
[2022-07-26 13:01] LABS: CREATININE SERUM 0.78 MG/DL (0.60-1.30)
[2022-07-26 13:04] LABS: MAGNESIUM 1.9 MG/DL (1.6-2.4)
[2022-07-26] MEDS ORDERED: meTOprolol 5 MG/5 ML (LOPRESSOR) VIAL IV STA (13:06)
[2022-07-26 13:46] LABS: PROTHROMBIN TIME PATIENT 13.1 SEC (12.2-14.7)
[2022-07-26] MEDS ORDERED: hydrALAZINE (APESOLINE) 20 MG/ML VIAL IV STA ×2 (14:12→15:53)
[2022-07-26 14:34] LABS: BILIRUBIN,URINE NEGATIVE (NEGATIVE); CLARITY,URINE SL CLOUDY; COLOR,URINE ORANGE; GLUCOSE, URINE (UA) NEGATIVE (NEGATIVE); KETONES,URINE NEGATIVE (NEGATIVE); LEUKOCYTE ESTERASE ,URINE 2+ (NEGATIVE); NITRITE,URINE NEGATIVE (NEGATIVE); PH,URINE 6.5 (5-9); PROTEIN,URINE 2+ (NEGATIVE)
[2022-07-26 14:51] LABS: RBC,URINE >100 /HPF
[2022-07-26 14:52] LABS: BACTERIA,URINE FEW /HPF
[2022-07-26 14:53] LABS: AMPHETAMINE SCREEN, URINE POSITIVE (NEGATIVE); BARBITURATE SCREEN URINE NEGATIVE (NEGATIVE); BENZODIAZEPINES SCREEN URINE NEGATIVE (NEGATIVE); CANNABINOID SCREEN, URINE NEGATIVE (NEGATIVE); COCAINE SCREEN URINE NEGATIVE (NEGATIVE); METHADONE STAT NEGATIVE (NEGATIVE); OPIATE SCREEN URINE POSITIVE (NEGATIVE); OXYCODONE STAT NEGATIVE (NEGATIVE); PROPOXYPHENE STAT NEGATIVE (NEGATIVE); TRICYCLIC ANTIDEPRESSANTS SCRE NEGATIVE (NEGATIVE)
[2022-07-26] MEDS ORDERED: FUROSEMIDE 40 MG/4 ML INJ (LASIX) IVP STA (15:51)
[2022-07-26] MEDS ORDERED: ENOXAPARIN 40 MG/0.4 ML (LOVENOX) SYR SC SCH (16:30)
[2022-07-26] MEDS ORDERED: PATIENT MAY USE OWN MEDS, ALL PO SCH (16:30)
--- NOTE | 2022-07-26 16:49 | History & Physical-OB/GYN ---
History of Present Illness History of Present Illness Reason for visit/HPI This 41yo presents 6day PP s/p RLTCS with concerns that her wound vac was not working. When she arrived her BP was 194/135. Repeat BP was 170/120 Pt was given metoprolol and BP went to 160/100. Pt states that she has had a PERES for the last 3days and states that she had blurred vision over the weekend. She also has BL lower extremity edema. She denies NV, chest pain/pressure, SOA, ep igastric pain. ER provider also states that pt is + for methamphetamines. Pt denies recent use but states last used 3mos ago. Date of Admission 07/26/22 Time Seen by a Provider: 16:30 I consulted on this patient on 07/26/22 16:43 Attending Physician Lenka Varma Admitting Physician Admitting Physician: Naif Kay DO Attending Physician: Consult Allergies and Home Medications Allergies Coded Allergies: No Known Drug Allergies (Unverified , 07/14/22) Patient Home Medication List Home Medication List Reviewed: Yes Docusate Sodium (Docusate Sodium) 100 Mg Capsule, 100 MG PO BID PRN for CONSTIPATION-1ST LINE Prescribed by: LENKA FERNANDES on 07/23/22 1018 Hydrocodone/Acetaminophen (Hydrocodone-Acetamin 5-325 mg) 5 Mg-325 Mg Tablet, 2 EA PO Q4H PRN for PAIN-MODERATE (5-7) Prescribed by: LENKA FERNANDES on 07/23/22 1018 Ibuprofen (Ibu) 600 Mg Tablet, 600 MG PO Q6H Prescribed by: LENKA FERNANDES on 07/23/22 1018 Past Xjaxglr-Txjixc-Wiujky Hx Patient Social History Marrital Status: single Number of Children: 3 Number of living children: 3 Employed/Student: unemployed Smoking Status: Never a Smoker 2nd Hand Smoke Exposure: No Recent Hopitalizations: No Have you traveled recently?: No Alcohol Use?: No Substance type: Amphetamines, Methamphetamine Pt feels they are or have been: No Immunizations Up To Date Tetanus Booster (TDap): Less than 5yrs Seasonal Allergies Seasonal Allergies: No Surgeries Yes Section (x3) Respiratory Yes ( CHILD) Currently Using CPAP: No Currently Using BIPAP: No Cardiovascular Yes (PIH, Lower extremity edema) Hypertension (chronic) Neurological No Reproductive System : No Hx : 3 Hx Para: 3 Hx Total # of Abortions (Spona: 0 Hx Reproductive Disorders: No Sexually Transmitted Disease: No HIV/AIDS: No Genitourinary No Gastrointestinal Yes Gastroesophageal Reflux Musculoskeletal No Endocrine History of Endocrine Disorders: No HEENT History of HEENT Disorders: No Cancer No Psychosocial History of Psychiatric Problem: No Integumentary History of Skin or Integumenta: No Skin/Integumentary Disorders: Recent Skin Changes ( pt has wound vac over incision ) Blood Transfusions History of Blood Disorders: No Adverse Reaction to a Blood Tr: No Reviewed Nursing Assessment Reviewed/Agree w Nursing PMH: Yes Family Medical History Significant Family History: Hypertension Review of Systems Constitutional: weight gain EENTM: blurred vision Respiratory: no symptoms reported Cardiovascular: no symptoms reported Genitourinary: no symptoms reported : No Control/STD Prophylaxis: None Musculoskeletal: no symptoms reported Skin: no symptoms reported Psychiatric/Neurological: No Symptoms Reported Physical Exam Physical Exam Vital Signs Vital Signs Date Time Temp Pulse Resp B/P (MAP) Pulse Ox O2 Delivery O2 Flow Rate FiO2 07/26/22 12:18 36.6 110 18 194/135 (154) 99 Room Air Capillary Refill : Less Than 3 Seconds Labs Laboratory Tests 07/26/22 12:35: White Blood Count 7.2, Red Blood Count 3.86, Hemoglobin 10.2L, Hematocrit 31L, Mean Corpuscular Volume 81, Mean Corpuscular Hemoglobin 26, Mean Corpuscular Hemoglobin Concent 33, Red Cell Distribution Width 14.9H, Platelet Count 305, Mean Platelet Volume 9.7, Immature Granulocyte % (Auto) 1, Neutrophils (%) ( Auto) 71, Lymphocytes (%) (Auto) 18, Monocytes (%) (Auto) 6, Eosinophils (%) (Auto) 3, Basophils (%) (Auto) 0, Neutrophils # (Auto) 5.1, Lymphocytes # (Auto) 1.3, Monocytes # (Auto) 0.4, Eosinophils # (Auto) 0.2, Basophils # (Auto) 0.0, Immature Granulocyte # (Auto) 0.1, Sodium Level 140, Potassium Level 3.8, Chloride Level 109H, Carbon Dioxide Level 16L, Anion Gap 15H, Blood Urea Nitrogen 11, Creatinine 0.78, Estimat Glomerular Filtration Rate 99, BUN/Creatinine Ratio 14, Glucose Level 101, Calcium Level 8.4L, Corrected Calcium 9.4, Magnesium Level 1.9, Total Bilirubin 0.3, Aspartate Amino Transf (AST/SGOT) 17, Alanine Aminotransferase (ALT/SGPT) 28, Alkaline Phosphatase 158H , C-Reactive Protein High Sensitivity 6.51H, B-Type Natriuretic Peptide 83.1, Total Protein 6.6, Albumin 2.8L 07/26/22 13:25: Prothrombin Time 13.1, INR Comment 1.0, Activated Partial Thromboplast Time 30 07/26/22 14:14: Urine Color ORANGE, Urine Clarity SL CLOUDY, Urine pH 6.5, Urine Specific [place] 1.010L, Urine Protein 2+H, Urine Glucose (UA) NEGATIVE, Urine Ketones NEGATIVE, Urine Nitrite NEGATIVE, Urine Bilirubin NEGATIVE, Urine Urobilinogen 1.0, Urine Leukocyte Esterase 2+H, Urine RBC (Auto) 3+H, Urine RBC >100H, Urine WBC 5-10H, Urine Squamous Epithelial Cells 2-5, Urine Crystals NONE, Urine Bacteria FEWH, Urine Casts NONE, Urine Mucus NEGATIVE, Urine Culture Indicated YES, Urine Opiates Screen POSITIVEH, Urine Oxycodone Screen NEGATIVE, Urine Methadone Screen NEGATIVE, Urine Propoxyphene Screen NEGATIVE, Urine Barbiturates Screen NEGATIVE, Ur Tricyclic Antidepressants Screen NEGATIVE, Urine Phencyclidine Screen NEGATIVE, Urine Amphetamines Screen POSITIVEH, Urine Methamphetamines Screen POSITIVEH, Urine Benzodiazepines Screen NEGATIVE, Urine Cocaine Screen NEGATIVE, Urine Cannabinoids Screen NEGATIVE General Appearance: No Apparent Distress, Moderate Distress, Obese Respiratory: Chest Non Tender, Lungs Clear, Normal Breath Sounds, No Accessory Muscle Use, No Respiratory Distress Cardiovascular: Regular Rate, Rhythm, Normal Peripheral Pulses Abdominal: normal bowel sounds, non tender, soft, no organomegaly Gynecology/General: No urethral discharge, No lesions, Other (lochia normal ) Labia: WNL Uterus: WNL (firm and midline well below umbilicus) Pelvic Exam: deferred Extremity: Non Tender, No Calf Tenderness, Pedal Edema (+3 bilaterally ), Other (no clonus DTRs =2/4=BL ) Assessment/Plan Assessment and Plan Problems: (1) hypertension Status: Acute Assessment & Plan: Admit for observation Start Labetalol 200mg po bid; Lasix 40mg consult cardiology for echocardiogram. (2) Encounter for management of wound VAC Onset Date: ~ 07/22/2022 Status: Acute Assessment & Plan: Wound vac is working well. Consult wound care for management (3) section wound complication Status: Acute Assessment & Plan: POD#6 Admission Diagnosis Admission Status: Observation Diagnosis/Problems Diagnosis/Problems (1) hypertension Status: Acute (2) Methamphetamine abuse Status: Acute Assessment & Plan: Consult social work lecturer (3) section wound complication Status: Acute (4) Encounter for management of wound VAC Onset Date: ~ 07/22/2022 Status: Acute Clinical Quality Measures Admission Status Admission Dx hypertension Admission Status: Observation DVT/VTE Risk/Contraindication: VTE Addressed: Yes VTE Present on Admission: No RFS Level Per Nursing on Admit: 3=High NAIF KAY DO July 26, 2022 16:49
--- NOTE | 2022-07-26 16:55 | Diagnostic Imaging Report ---
INDICATION: hypertension. COMPARISON: None available. TECHNIQUE: Two radiographs of the chest dated July 26, 2022. FINDINGS: The cardiac silhouette is enlarged. Central pulmonary vascular congestion is present. The lungs are clear of focal pulmonary opacity when accounting for overlying soft tissues. No significant pleural effusion. No pneumothorax. No acute osseous abnormality. IMPRESSION: Cardiomegaly with central pulmonary vascular congestion, likely accentuated by patient body habitus and technique. No large-volume pleural effusion. Dictated by: Dictated on workstation # [id number]
--- NOTE | 2022-07-26 18:01 | Consultation-Cardiology ---
HPI-Cardiology Cardiology Consultation: Date of Consultation 07/26/22 Time Seen by a Provider: 17:45 Date of Admission Attending Physician Reynaldo Varma Admitting Physician Admitting Physician: Chloe Kay DO Attending Physician: Chloe Kay DO Consulting Physician GRACY LOPEZ MD, MA, FACP, FACC, FSCAI, CCDS Physician requesting consult: Dr Kay HPI: Chief Complaint: Reason for Card consult: Hypertension 41 yo woman s/p caesarean section on 07/22/22 who came to the ER because wound vac needed to be evacuated. Was found to have hypertension and admitted to Dr Kay's service who has asked us to see her in consult. Ms Leiva does not report and chest pain or shortness of breath or palp or syncope or presyncope. She has chronic, intermittent leg swelling (worse with the progression of the day and improving overnight) which has been somewhat worse today. She was treated with iv furosemide by the ER physician today before being admitted. She notes some headaches and mild blurriness of the vision yesterday, none today. She is emotionally stressed that she won't be able to spend tonight with her 3 children. Her mother was by her bedside at this interview and exam. Review of Systems-Cardiology Review of Systems Constitutional: No malaise, No tiredness, No weight loss Eyes: No vision change Ears/Nose/Throat: No ear discharge, No nasal drainage, No recent hearing loss Respiratory: As described under HPI Cardiovascular: As described under HPI Gastrointestinal: No diarrhea, No nausea, No vomiting Genitourinary: No dysuria, No hematuria, No urine frequency changes : No Musculoskeletal: No back pain, No joint pain Skin: No rash, No ulcerations Psychiatric/Neurological: No seizure, No focal weakness Hematologic: No bleeding abnormalities All Other Systems Reviewed Negative Unless Noted: Yes [id number]-Ygblic Hx Patient Social History Marrital Status: single Number of Children: 3 Number of living children: 3 Employed/Student: unemployed Smoking Status: Never a Smoker 2nd Hand Smoke Exposure: No Have you traveled recently?: No Alcohol Use?: No Substance type: Amphetamines, Methamphetamine Pt feels they are or have been: No Immunizations Up To Date Tetanus Booster (TDap): Less than 5yrs Past Medical History PMH As described under Assessment. Family Medical History Family Medical History: She does not report family h/o early CAD or SCD (in first deg relatives) Allergies and Home Medications Allergies Coded Allergies: No Known Drug Allergies (Unverified , 07/14/22) Patient Home Medication List Home Medication List Reviewed: Yes Docusate Sodium (Docusate Sodium) 100 Mg Capsule, 100 MG PO BID PRN for CONSTIPATION-1ST LINE Prescribed by: REYNALDO FERNANDES on 07/23/22 1018 Hydrocodone/Acetaminophen (Hydrocodone-Acetamin 5-325 mg) 5 Mg-325 Mg Tablet, 2 EA PO Q4H PRN for PAIN-MODERATE (5-7) Prescribed by: REYNALDO FERNANDES on 07/23/22 1018 Ibuprofen (Ibu) 600 Mg Tablet, 600 MG PO Q6H Prescribed by: REYNALDO FERNANDES on 07/23/22 1018 Physical Exam-Cardiology Physical Exam Vital Signs/I&O 07/26/22 07/26/22 12:18 17:15 Temp 36.6 36.5 Pulse 110 88 Resp 18 20 B/P (MAP) 194/135 (154) 155/96 (115) Pulse Ox 99 96 O2 Delivery Room Air Room Air Capillary Refill : Less Than 3 Seconds Constitutional: AAO x 3, well-developed, well-nourished, other (morbid obesity; BMI > 68) HEENT: EOMI, hearing is well preserved; No xanthelasmas are seen Neck: carotid pulses are 2 + bilaterally, with good upstrokes Respiratory: No accessory muscle use; chest expansion is symmetric, chest is bilaterally symmetric, other (good, bilat air entry) Cardiovascular: regular rate-rhythm, S1 and S2, systolic murmur (faint ÁNGELA at card base) Gastrointestinal: No tender; soft; No guarding, No rebound; audible bowel sounds, other (lower abd under dressing that was not removed) Extremities: No clubbing, No cyanosis, No significant edema Neurologic/Psychiatric: oriented x 3, other (moves all limbs equally) Skin: normal color, warm/dry; No cyanosis, No cool, No rash on exposed areas, No ulcerations on exposed areas Data Review Labs Laboratory Tests 07/26/22 12:35: White Blood Count 7.2, Red Blood Count 3.86, Hemoglobin 10.2L, Hematocrit 31L, Mean Corpuscular Volume 81, Mean Corpuscular Hemoglobin 26, Mean Corpuscular Hemoglobin Concent 33, Red Cell Distribution Width 14.9H, Platelet Count 305, Mean Platelet Volume 9.7, Immature Granulocyte % (Auto) 1, Neutrophils (%) (Auto) 71, Lymphocytes (%) (Auto) 18, Monocytes (%) (Auto) 6, Eosinophils (%) (Auto) 3, Basophils (%) (Auto) 0, Neutrophils # (Auto) 5.1, Lymphocytes # (Auto) 1.3, Monocytes # (Auto) 0.4, Eosinophils # (Auto) 0.2, Basophils # (Auto) 0.0, Immature Granulocyte # (Auto) 0.1, Sodium Level 140, Potassium Level 3.8, Chloride Level 109H, Carbon Dioxide Level 16L, Anion Gap 15H, Blood Urea Nitrogen 11, Creatinine 0.78, Estimat Glomerular Filtration Rate 99, BUN/Creatinine Ratio 14, Glucose Level 101, Calcium Level 8.4L, Corrected Calcium 9.4, Magnesium Level 1.9, Total Bilirubin 0.3, Aspartate Amino Transf (AST/SGOT) 17, Alanine Aminotransferase (ALT/SGPT) 28, Alkaline Phosphatase 158H , C-Reactive Protein High Sensitivity 6.51H, B-Type Natriuretic Peptide 83.1, Total Protein 6.6, Albumin 2.8L 07/26/22 13:25: Prothrombin Time 13.1, INR Comment 1.0, Activated Partial Thromboplast Time 30 07/26/22 14:14: Urine Color ORANGE, Urine Clarity SL CLOUDY, Urine pH 6.5, Urine Specific [place] 1.010L, Urine Protein 2+H, Urine Glucose (UA) NEGATIVE, Urine Ketones NEGATIVE, Urine Nitrite NEGATIVE, Urine Bilirubin NEGATIVE, Urine Urobilinogen 1.0, Urine Leukocyte Esterase 2+H, Urine RBC (Auto) 3+H, Urine RBC >100H, Urine WBC 5-10H, Urine Squamous Epithelial Cells 2-5, Urine Crystals NONE, Urine Bacteria FEWH, Urine Casts NONE, Urine Mucus NEGATIVE, Urine Culture Indicated YES, Urine Opiates Screen POSITIVEH, Urine Oxycodone Screen NEGATIVE, Urine Methadone Screen NEGATIVE, Urine Propoxyphene Screen NEGATIVE, Urine Barbiturates Screen NEGATIVE, Ur Tricyclic Antidepressants Screen NEGATIVE, Urine Phencyclidine Screen NEGATIVE, Urine Amphetamines Screen POSITIVEH, Urine Methamphetamines Screen POSITIVEH, Urine Benzodiazepines Screen NEGATIVE, Urine Cocaine Screen NEGATIVE, Urine Cannabinoids Screen NEGATIVE Laboratory Tests 07/26/22 12:35 A/P-Cardiology Assessment/Admission Diagnosis Hypertension Morbid obesity - BMI > 68 Mild to moderate metabolic acidosis of undetermined etiology H/o methamphetamine use - states last use more than a month ago, but positive for meth and THC during this hosp (urine drug screen) Discussion and Recomendations * Treat with beta-juan j and diuretic * Advised avoidance of street drugs * Monitor labs * Echo in am * Tele overnight * We advise eval of headache and blurriness of vision and acidosis by the Hospitalist service * Discussed with Dr Kay on the phone Clinical Quality Measures DVT/VTE Risk/Contraindication: VTE Addressed: Yes VTE Present on Admission: No RFS Level Per Nursing on Admit: 3=High GRACY LOPEZ MD FACP FAC CCDS July 26, 2022 18:01
[2022-07-26] MEDS ORDERED: KCL 10 MEQ TAB (MICRO K) PO ONE ×2 (18:15→18:33)
[2022-07-26] MEDS ORDERED: hydrALAZINE (APESOLINE) 20 MG/ML VIAL IV PRN (18:15)
[2022-07-26] MEDS ORDERED: ENOXAPARIN 40 MG/0.4 ML (LOVENOX) SYR ONE (18:33)
[2022-07-26] MEDS: KCL 10 MEQ TAB (MICRO K) PO SCH (18:40)
[2022-07-26] MEDS ORDERED: LABETALOL 200 MG (NORMODYNE) TAB PO ONE (20:28)
[2022-07-26] MEDS ORDERED: LABETALOL 200 MG (NORMODYNE) TAB PO SCH (21:00)
[2022-07-27] VITALS (10 sets, daily range): BP systolic 103–184; BP diastolic 57–122
[2022-07-27] MEDS ORDERED: ACETAMINOPHEN 500 MG TAB (TYLENOL) PO PRN (04:15)
[2022-07-27] MEDS ORDERED: ACETAMINOPHEN 500 MG TAB (TYLENOL) ONE (04:25)
[2022-07-27 05:44] LABS: BASOPHILS % (AUTO) 0 % (0-10); EOSINOPHILS # (AUTO) 0.2 10^3/uL (0.0-0.3); EOSINOPHILS % (AUTO) 3 % (0-10); HEMATOCRIT 31 % (35-52); LYMPHOCYTES # (AUTO) 1.4 10^3/uL (1.0-4.0); LYMPHOCYTES % (AUTO) 19 % (12-44); MEAN CORPUSCULAR HEMOGLOBIN 26 pg (25-34); MEAN CORPUSCULAR HGB CONC 33 g/dL (32-36); MEAN CORPUSCULAR VOLUME 80 fL (80-99); MEAN PLATELET VOLUME 9.7 fL (9.0-12.2); MONOCYTES # (AUTO) 0.4 10^3/uL (0.0-1.0); MONOCYTES % (AUTO) 6 % (0-12); NEUTROPHILS # (AUTO) 5.1 10^3/uL (1.8-7.8); NEUTROPHILS % (AUTO) 71 % (42-75); PLATELET COUNT 289 10^3/uL (130-400); WHITE BLOOD COUNT 7.1 10^3/uL (4.3-11.0)
[2022-07-27 05:51] LABS: ALBUMIN 2.7 GM/DL (3.2-4.5); POTASSIUM 3.4 MMOL/L (3.6-5.0)
[2022-07-27 05:52] LABS: CALCIUM 8.2 MG/DL (8.5-10.1)
[2022-07-27 05:53] LABS: TOTAL PROTEIN 6.1 GM/DL (6.4-8.2)
[2022-07-27 05:55] LABS: BILIRUBIN,TOTAL 0.3 MG/DL (0.1-1.0)
[2022-07-27 05:57] LABS: CREATININE SERUM 0.74 MG/DL (0.60-1.30)
[2022-07-27] MEDS ORDERED: CATHETER FLUSH 10 ML SYR IVP SCH (06:00)
[2022-07-27] MEDS ORDERED: LABETALOL 200 MG (NORMODYNE) TAB PO SCH ×2 (07:00→21:00)
--- NOTE | 2022-07-27 07:48 | Postpartum Progress Note ---
Note Note Day #7 Subjective: Patient would like to go home today. She denies PERES vision changes CP SOA epigastric pain NV BP thhrough night was elevated received 1 dose of hydralazine with BP of 180/118. Last BP 156/103 Pt is on 200mg labetalol BID and 40mg lasix daily Objective: [] Physical Exam: General - Alert and oriented, no apparent distress Heart- regular rate and rhythm Lungs- clear to auscultation Abdomen - Soft, appropriately tender to palpation, non-distended, fundus firm at umbilicus Wound vac over incision no leaking It appears to have small amount of drainage Extremities - SCD and TEDs on Teds cutting into leg and removed. Decreased edema +1-2 BL Assessment: 1. post- day #7, status post delivery. Recovering well, hemodynamically stable 2. hypertension BP still elevated on labetalol and lasix 3. 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 Plan: Will increase frequency of labetalol to Q8h and continue Lasix Monitor BP closely Continue SCDs and VTE prophylaxis Cardiology consulted. Echocardiogram today Routine care. Wound care to manage wound vac Encourage ambulation. Ferrous sulfate supplementation. Plan for discharge [] Vitals - Labs Vital Signs - I&O Vital Signs Date Time Temp Pulse Resp B/P (MAP) Pulse Ox O2 Delivery O2 Flow Rate FiO2 07/27/22 07:29 94 07/27/22 07:00 91 20 148/92 (110) Room Air 07/27/22 05:30 92 20 156/103 (120) Room Air 07/27/22 05:00 94 20 155/95 (115) Room Air 07/27/22 04:08 36.0 95 20 158/101 (120) 96 Room Air 07/27/22 03:39 81 20 184/122 (142) Room Air 07/27/22 03:00 85 20 168/106 (126) Room Air 07/27/22 01:00 96 07/27/22 01:00 36.2 98 20 145/86 (105) 96 Room Air 07/26/22 23:00 36.2 92 20 123/68 (86) 96 Room Air 07/26/22 22:09 96 20 140/85 (103) Room Air 07/26/22 21:50 96 20 126/72 (90) 96 Room Air 07/26/22 21:00 94 20 165/97 (119) Room Air 07/26/22 20:30 36.6 88 20 164/93 (116) 97 Room Air 07/26/22 19:00 85 07/26/22 18:30 36.5 84 20 142/74 (96) 99 Room Air 07/26/22 18:09 86 07/26/22 17:20 96 Room Air 07/26/22 17:15 36.5 88 20 155/96 (115) 96 Room Air 07/26/22 16:54 88 18 172/100 97 Room Air 07/26/22 12:18 36.6 110 18 194/135 (154) 99 Room Air I & O 07/27/22 07:00 Intake Total 400 ml Output Total 1900 ml Balance -1500 ml Labs Laboratory Tests 07/26/22 12:35: White Blood Count 7.2, Red Blood Count 3.86, Hemoglobin 10.2L, Hematocrit 31L, Mean Corpuscular Volume 81, Mean Corpuscular Hemoglobin 26, Mean Corpuscular Hemoglobin Concent 33, Red Cell Distribution Width 14.9H, Platelet Count 305, Mean Platelet Volume 9.7, Immature Granulocyte % (Auto) 1, Neutrophils (%) (Auto) 71, Lymphocytes (%) (Auto) 18, Monocytes (%) (Auto) 6, Eosinophils (%) (Auto) 3, Basophils (%) (Auto) 0, Neutrophils # (Auto) 5.1, Lymphocytes # (Auto) 1.3, Monocytes # (Auto) 0.4, Eosinophils # (Auto) 0.2, Basophils # (Auto) 0.0, Immature Granulocyte # (Auto) 0.1, Sodium Level 140, Potassium Level 3.8, Chloride Level 109H, Carbon Dioxide Level 16L, Anion Gap 15H, Blood Urea Nitrogen 11, Creatinine 0.78, Estimat Glomerular Filtration Rate 99, BUN/Creatin ine Ratio 14, Glucose Level 101, Calcium Level 8.4L, Corrected Calcium 9.4, Magnesium Level 1.9, Total Bilirubin 0.3, Aspartate Amino Transf (AST/SGOT) 17, Alanine Aminotransferase (ALT/SGPT) 28, Alkaline Phosphatase 158H, C-Reactive Protein High Sensitivity 6.51H, B-Type Natriuretic Peptide 83.1, Total Protein 6.6, Albumin 2.8L 07/26/22 13:25: Prothrombin Time 13.1, INR Comment 1.0, Activated Partial Thromboplast Time 30 07/26/22 14:14: Urine Color ORANGE, Urine Clarity SL CLOUDY, Urine pH 6.5, Urine Specific [place] 1.010L, Urine Protein 2+H, Urine Glucose (UA) NEGATIVE, Urine Ketones NEGATIVE, Urine Nitrite NEGATIVE, Urine Bilirubin NEGATIVE, Urine Urobilinogen 1.0, Urine Leukocyte Esterase 2+H, Urine RBC (Auto) 3+H, Urine RBC >100H, Urine WBC 5-10H, Urine Squamous Epithelial Cells 2-5, Urine Crystals NONE, Urine Bacteria FEWH, Urine Casts NONE, Urine Mucus NEGATIVE, Urine Culture Indicated YES, Urine Opiates Screen POSITIVEH, Urine Oxycodone Screen NEGATIVE, Urine Methadone Screen NEGATIVE, Urine Propoxyphene Screen NEGATIVE, Urine Barbiturates Screen NEGATIVE, Ur Tricyclic Antidepressants Screen NEGATIVE, Urine Phencyclidine Screen NEGATIVE, Urine Amphetamines Screen POSITIVEH, Urine Methamphetamines Screen POSITIVEH, Urine Benzodiazepines Screen NEGATIVE, Urine Cocaine Screen NEGATIVE, Urine Cannabinoids Screen NEGATIVE 07/27/22 05:33: White Blood Count 7.1, Red Blood Count 3.84, Hemoglobin 10.0L, Hematocrit 31L, Mean Corpuscular Volume 80, Mean Corpuscular Hemoglobin 26, Mean Corpuscular Hemoglobin Concent 33, Red Cell Distribution Width 15.0H, Platelet Count 289, Mean Platelet Volume 9.7, Immature Granulocyte % (Auto) 1, Neutrophils (%) (Auto) 71, Lymphocytes (%) (Auto) 19, Monocytes (%) (Auto) 6, Eosinophils (%) (Auto) 3, Basophils (%) (Auto) 0, Neutrophils # (Auto) 5.1, Lymphocytes # (Auto) 1.4, Monocytes # (Auto) 0.4, Eosinophils # (Auto) 0.2, Basophils # (Auto) 0.0, Immature Granulocyte # (Auto) 0.0, Sodium Level 139, Potassium Level 3.4L, Chloride Level 105, Carbon Dioxide Level 22, Anion Gap 12, Blood Urea Nitrogen 10, Creatinine 0.74, Estimat Glomerular Filtration Rate 105, BUN/Creatinine Ra patience 14, Glucose Level 87, Calcium Level 8.2L, Corrected Calcium 9.2, Total Bilirubin 0.3, Aspartate Amino Transf (AST/SGOT) 13, Alanine Aminotransferase (ALT/SGPT) 24, Alkaline Phosphatase 141H, Total Protein 6.1L, Albumin 2.7L Microbiology 07/26/22 Urine Culture - Preliminary, Resulted NAIF JENKINS DO July 27, 2022 07:48
[2022-07-27] MEDS ORDERED: FUROSEMIDE 40 MG (LASIX) TAB PO SCH (09:00)
[2022-07-27] MEDS: KCL 10 MEQ TAB (MICRO K) PO SCH (09:36)
--- NOTE | 2022-07-27 10:57 | Progress Note - Cardiology ---
Cardiology SOAP Progress Note Subjective: No cp or palp or syncope or shortness of breath No n/v/d No swelling No focal weakness No malaise Wishes to go home Objective: I&O/Vital Signs 07/26/22 07/27/22 07/27/22 07/27/22 23:00 01:00 01:00 03:00 Temp 36.2 36.2 Pulse 92 98 96 85 Resp 20 20 20 B/P (MAP) 123/68 (86) 145/86 (105) 168/106 (126) Pulse Ox 96 96 O2 Delivery Room Air Room Air Room Air 07/27/22 07/27/22 07/27/22 07/27/22 03:39 04:08 05:00 05:30 Temp 36.0 Pulse 81 95 94 92 Resp 20 20 20 20 B/P (MAP) 184/122 (142) 158/101 (120) 155/95 (115) 156/103 (120) Pulse Ox 96 O2 Delivery Room Air Room Air Room Air Room Air 07/27/22 07/27/22 07/27/22 07:00 07:29 09:37 Temp 36.7 Pulse 91 94 88 Resp 20 20 B/P (MAP) 148/92 (110) 103/57 (72) Pulse Ox 97 O2 Delivery Room Air Room Air Constitutional: AAO x 3, well-developed, well-nourished, other (morbid obesity; BMI > 68) Respiratory: No accessory muscle use; chest expansion is symmetric, chest is bilaterally symmetric, other (good, bilat air entry) Cardiovascular: regular rate-rhythm, S1 and S2, systolic murmur (faint ÁNGELA at card base) Gastrointestional: No tender; soft; No guarding, No rebound; audible bowel sounds, other (lower abd under dressing that was not removed) Extremities: No clubbing, No cyanosis, No significant edema Neurologic/Psychiatric: oriented x 3, other (moves all limbs equally) Skin: normal color, warm/dry; No cyanosis, No cool, No rash on exposed areas, No ulcerations on exposed areas Results/Procedures: Labs Laboratory Tests 07/26/22 12:35: White Blood Count 7.2, Red Blood Count 3.86, Hemoglobin 10.2L, Hematocrit 31L, Mean Corpuscular Volume 81, Mean Corpuscular Hemoglobin 26, Mean Corpuscular Hemoglobin Concent 33, Red Cell Distribution Width 14.9H, Platelet Count 305, Mean Platelet Volume 9.7, Immature Granulocyte % (Auto) 1, Neutrophils (%) (Auto) 71, Lymphocytes (%) (Auto) 18, Monocytes (%) (Auto) 6, Eosinophils (%) (Auto) 3, Basophils (%) (Auto) 0, Neutrophils # (Auto) 5.1, Lymphocytes # (Auto) 1.3, Monocytes # (Auto) 0.4, Eosinophils # (Auto) 0.2, Basophils # (Auto) 0.0, Immature Granulocyte # (Auto) 0.1, Sodium Level 140, Potassium Level 3.8, Chloride Level 109H, Carbon Dioxide Level 16L, Anion Gap 15H, Blood Urea Nitrogen 11, Creatinine 0.78, Estimat Glomerular Filtration Rate 99, BUN/Creatinine Ratio 14, Glucose Level 101, Calcium Level 8.4L, Corrected Calcium 9.4, Magnesium Level 1.9, Total Bilirubin 0.3, Aspartate Amino Transf (AST/SGOT) 17, Alanine Aminotransferase (ALT/SGPT) 28, Alkaline Phosphatase 158H , C-Reactive Protein High Sensitivity 6.51H, B-Type Natriuretic Peptide 83.1, Total Protein 6.6, Albumin 2.8L 07/26/22 13:25: Prothrombin Time 13.1, INR Comment 1.0, Activated Partial Thromboplast Time 30 07/26/22 14:14: Urine Color ORANGE, Urine Clarity SL CLOUDY, Urine pH 6.5, Urine Specific [place] 1.010L, Urine Protein 2+H, Urine Glucose (UA) NEGATIVE, Urine Ketones NEGATIVE, Urine Nitrite NEGATIVE, Urine Bilirubin NEGATIVE, Urine Urobilinogen 1.0, Urine Leukocyte Esterase 2+H, Urine RBC (Auto) 3+H, Urine RBC >100H, Urine WBC 5-10H, Urine Squamous Epithelial Cells 2-5, Urine Crystals NONE, Urine Bacteria FEWH, Urine Casts NONE, Urine Mucus NEGATIVE, Urine Culture Indicated YES, Urine Opiates Screen POSITIVEH, Urine Oxycodone Screen NEGATIVE, Urine Methadone Screen NEGATIVE, Urine Propoxyphene Screen NEGATIVE, Urine Barbiturates Screen NEGATIVE, Ur Tricyclic Antidepressants Screen NEGATIVE, Urine Phencyclidine Screen NEGATIVE, Urine Amphetamines Screen POSITIVEH, Urine Methamphetamines Screen POSITIVEH, Urine Benzodiazepines Screen NEGATIVE, Urine Cocaine Screen NEGATIVE, Urine Cannabinoids Screen NEGATIVE 07/27/22 05:33: White Blood Count 7.1, Red Blood Count 3.84, Hemoglobin 10.0L, Hematocrit 31L, Mean Corpuscular Volume 80, Mean Corpuscular Hemoglobin 26, Mean Corpuscular Hemoglobin Concent 33, Red Cell Distribution Width 15.0H, Platelet Count 289, Mean Platelet Volume 9.7, Immature Granulocyte % (Auto) 1, Neutrophils (%) (Auto) 71, Lymphocytes (%) (Auto) 19, Monocytes (%) (Auto) 6, Eosinophils (%) (A uto) 3, Basophils (%) (Auto) 0, Neutrophils # (Auto) 5.1, Lymphocytes # (Auto) 1.4, Monocytes # (Auto) 0.4, Eosinophils # (Auto) 0.2, Basophils # (Auto) 0.0, Immature Granulocyte # (Auto) 0.0, Sodium Level 139, Potassium Level 3.4L, Chloride Level 105, Carbon Dioxide Level 22, Anion Gap 12, Blood Urea Nitrogen 10, Creatinine 0.74, Estimat Glomerular Filtration Rate 105, BUN/Creatinine Ratio 14, Glucose Level 87, Calcium Level 8.2L, Corrected Calcium 9.2, Total Bilirubin 0.3, Aspartate Amino Transf (AST/SGOT) 13, Alanine Aminotransferase (ALT/SGPT) 24, Alkaline Phosphatase 141H, Total Protein 6.1L, Albumin 2.7L Microbiology 07/26/22 Urine Culture - Preliminary, Resulted Laboratory Tests 07/26/22 12:35 07/27/22 05:33 A/P: Assessment: Hypertension - Echo on 07-27-22: The cavity size is normal. There is mild to moderate concentric hypertrophy. Systolic function is normal. The estimated ejection fraction is 60-65%. There were no regional wall motion abnormalities identified. Left atrium: The atrium is mildly dilated. Pulmonary arteries: Systolic pressure is in the range of 40 mm Hg to 45 mm Hg. Morbid obesity - BMI > 68 Mild to moderate metabolic acidosis of undetermined etiology - resolved on labs of 07-27-22 Mild hypokalemi Mild anemia of undetermined etiology H/o methamphetamine use - states last use more than a month ago, but positive for meth and opiates during this hosp (urine drug screen) Plan: * Continue labetolol 200 po bid * Echo results discussed with her in detail * Advised avoidance of street drugs * D/c diuretics * Replenish K * Advised f/u with pcp on hypertension, anemia, mild pulmonary hypertension, and suspected sleep apnea GR[facility]Y LOPEZ [facility] July 27, 2022 10:57
[2022-07-27] MEDS ORDERED: KCL 20 MEQ TAB (K-DUR) PO ONE (11:00)
[2022-07-27] MEDS ORDERED: LABE200T10 PO (13:17)
== END 2022-07-27 14:48 | disposition home or self-care (01) ==
LOC: EDUNIT# 12:13 → ER 12:15 → LDRP 17:06
PROVIDERS: ADMIT Obstetrics & Gynecology; ATTEND Obstetrics & Gynecology
DX: O16.5 Unspecified maternal hypertension, complicating the puerperium (principal); O90.89 Other complications of the puerperium, not elsewhere classified; E66.01 Morbid (severe) obesity due to excess calories; E87.20 Acidosis, unspecified; E87.6 Hypokalemia; D64.9 Anemia, unspecified; F19.10 Other psychoactive substance abuse, uncomplicated; Z68.44 Body mass index [BMI] 60.0-69.9, adult
CPT/HCPCS: 71045; 80053 ×2; 80306; 81000; 83735; 83880; 85025 ×2; 85610; 85730; 86141; 87088; 93005; 96372; 96374; 99284; C8929; G0378; 36415; 93306